=== PATIENT | male | born 1950 | race Caucasian/White ===

== ENCOUNTER 2020-02-04 20:05 | Emergency (ER) | payer OTHER ==
[~2020-02-04] VITALS: Ht 188 cm; Wt 86.6 kg
[~2020-02-04 20:05] MED LIST: APAP/HYDROCODON1 T13 PO; ATIVAN2 MG PO; COL100 PO; ECO81 PO; GABAPENTIN100 M2 PO; GLUCOSAMINE500 MG PO; LANSOPRAZOLE30 M2 PO; LOSARTAN POTASS25 M1 PO; REMERON45 MG PO; RESTORIL30 MG PO; TYLENOL WITH CO1 TA3 PO; ZOC10 PO
[2020-02-04 20:09] VITALS: Ht 188 cm; Wt 86.6 kg
[2020-02-04 20:58] LABS: BASOPHIL % 0.6 % (0-2); PLATELET COUNT 168 x10^3mcL (130-400); RED CELL DISTRIBUTION WIDTH 14.2 % (11.5-14.5)
[2020-02-04 21:47] LABS: CALCIUM 8.8 mg/dL (8.5-10.1); CARBON DIOXIDE 24.3 mmol/L (21-32); CHLORIDE SERUM 97 mmol/L (98-107); CREATININE SERUM 1.2 mg/dL (0.7-1.3); GFR1 > 60 mL/min; GLUCOSE SERUM 129 mg/dL (74-106); POTASSIUM SERUM 3.9 mmol/L (3.5-5.1); SODIUM SERUM 137 mmol/L (136-145)
[2020-02-04 21:59] LABS: ALBUMIN 4.3 g/dL (3.4-5.0); ALKALINE PHOSPHATASE 46 U/L (46-116); ALT/SGPT 25 U/L (16-63); AST/SGOT 19 U/L (15-37); BILIRUBIN TOTAL 0.6 mg/dL (0.20-1.00); TOTAL PROTEIN, SERUM 7.3 g/dL (6.4-8.2)
[2020-02-05 01:13] VITALS: BP 156/70
== END 2020-02-05 01:13 | disposition home or self-care (01) ==
LOC: ED 20:05
PROVIDERS: Emergency Medicine
DX: K80.70 Calculus of gallbladder and bile duct without cholecystitis without obstruction (principal); R07.89 Other chest pain; F17.210 Nicotine dependence, cigarettes, uncomplicated; I10 Essential (primary) hypertension; E11.9 Type 2 diabetes mellitus without complications; E78.00 Pure hypercholesterolemia, unspecified
CPT/HCPCS: 83880; J1885; J2405; Q0092